=== PATIENT | female | born 1975 | race American Indian/Alaskan Native ===

== ENCOUNTER 2020-05-30 10:32 | Emergency (ER) | payer MEDICAID ==
[2020-05-30 10:37] VITALS: BP 112/83
[2020-05-30] MEDS ORDERED: FLUORESCEIN 1 MG STRIP OP ONE (10:40)
[2020-05-30] MEDS ORDERED: TETRACAINE 0.5% OPHTH SOLN 4ML OU ONE (10:40)
--- NOTE | 2020-05-30 10:51 | Emergency Department Report ---
ED Eye Problem HPI - General Chief complaint: Eye Problems Stated complaint: RT EYE PAIN Source: patient Mode of arrival: Ambulatory Limitations: No Limitations - History of Present Illness Initial comments: pt is a 44 yo female who presents to the ED with c/o right eye irritation that began just VIDEO TAPE [employer]SF[employer]. She states she had just woken up and was rubbing her eyes when she accidentally scratched her right eye with her fingernail. she states the eye was frequently watering. she states her eye feels slightly blurry secondary to the frequent watering. she denies any mucus or purulent drainage. she denies any contact lens use. she states that she has a foreign body sensation but did not get anything else into the eye. no pmhx. no allergies to meds. LNMP a week ago. - Related Data Previous Rx's Medication Instructions Recorded Last Taken Type Erythromycin [Erythromycin Ophth 1 applicatio OD QID 7 Days #1 tube 05/30/20 Unknown Rx Oint] Allergies Allergy/AdvReac Type Severity Reaction Status Date / Time coconut Allergy Angioedema Verified 05/30/20 10:34 ED Review of Systems ROS: Stated complaint: RT EYE PAIN Other details as noted in HPI Comment: All other systems reviewed and negative ED Past Medical Hx - Past Medical History Previous Medical History?: No - Surgical History Past Surgical History?: No - Medications Home Medications: Home Medications Medication Instructions Recorded Confirmed Last Taken Type Erythromycin [Erythromycin Ophth 1 applicatio OD QID 7 Days #1 tube 05/30/20 Unknown Rx Oint] ED Physical Exam - General Limitations: No Limitations General appearance: alert, in no apparent distress - Head Head exam: Present: atraumatic, normocephalic - Eye Eye exam: Present: PERRL, EOMI, other (fluoroscein stain with hernandez lamp examination: there is a 3 mm area of uptake overlying the region of the pupil, no foreign body, no signs of ulceration). Absent: periorbital swelling, periorbital tenderness - ENT ENT exam: Present: mucous membranes moist - Respiratory Respiratory exam: Absent: respiratory distress, accessory muscle use - Neurological Exam Neurological exam: Present: alert, oriented X3 - Psychiatric Psychiatric exam: Present: normal affect, normal mood - Skin Skin exam: Present: warm, dry, intact ED Course Vital Signs 05/30/20 10:34 Temperature 98.1 F Pulse Rate 72 Respiratory 16 Rate Blood Pressure 112/83 [Right] O2 Sat by Pulse 99 Oximetry ED Medical Decision Making - Medical Decision Making pt is a 44 yo female who presents to the ED with c/o right eye irritation that began just VIDEO T[employer]SF[employer]. She states she had just woken up and was rubbing her eyes when she accidentally scratched her right eye with her fingernail. she states the eye was frequently watering. she states her eye feels slightly blurry secondary to the frequent watering. she denies any mucus or purulent drainage. she denies any contact lens use. she states that she has a foreign body sensation but did not get anything else into the eye. no pmhx. no allergies to meds. LNMP a week ago. VSS. on exam: fluoroscein stain with hernandez lamp examination: there is a 3 mm area of uptake overlying the region of the right pupil, no foreign body, no signs of ulceration, EOMI, PERRLA. given prescription for erythromycin ointment. advised patient please use medication as prescribed. avoid rubbing the eye. wash your hands frequently and before and after you place medication. follow up with an family psychologist. return to the emergency room for any new or worsening symptoms. Critical care attestation.: If time is entered above; I have spent that time in minutes in the direct care of this critically ill patient, excluding procedure time. ED Disposition Clinical Impression: Corneal abrasion Qualifiers: Encounter type: initial encounter Laterality: right Qualified Code(s): S05.01XA - Injury of conjunctiva and corneal abrasion without foreign body, right eye, initial encounter Disposition: DC- TO HOME OR SELFCARE Is pt being admited?: No Does the pt Need Aspirin: No Condition: Stable Instructions: Corneal Abrasion Additional Instructions: please use medication as prescribed. avoid rubbing the eye. wash your hands frequently and before and after you place medication. follow up with an family psychologist. return to the emergency room for any new or worsening symptoms. Prescriptions: Erythromycin [Erythromycin Ophth Oint] 1 applicatio OD QID 7 Days #1 tube Referrals: [facility] [Provider Group] - 2-3 Days ANDREZ GARCIA DO [Staff Physician] - 2-3 Days Forms: Work/School Release Form(ED) Time of Disposition: 10:49 Print Language: UKRAINIAN
== END 2020-05-30 11:11 | disposition home or self-care (01) ==
LOC: ED 10:32
DX: S05.01XA Injury of conjunctiva and corneal abrasion without foreign body, right eye, initial encounter (principal); Z79.2 Long term (current) use of antibiotics; Z91.018 Allergy to other foods; X58.XXXA Exposure to other specified factors, initial encounter; Y93.89 Activity, other specified; Y92.89 Other specified places as the place of occurrence of the external cause; Y99.8 Other external cause status
CPT/HCPCS: 99282

== ENCOUNTER 2020-07-29 18:17 | Emergency (ER) | payer MEDICAID ==
[2020-07-29 19:40] VITALS: BP 164/94
--- NOTE | 2020-07-29 19:42 | Emergency Department Report ---
- General Stated complaint: RASH ALL OVER BODY/ITCHY/PAINFUL Time Seen by Provider: 07/29/20 19:37 Source: patient Mode of arrival: Ambulatory Limitations: No Limitations - History of Present Illness Initial comments: Patient is a 44-year-old female presents emergency room with complaints of a rash diffusely that began 3 days ago. She states that it feels very pruritic. She denies any new soaps, lotions, detergents, medications, foods, anything new she can think of. She denies any facial swelling, difficulty swallowing, difficulty breathing, sensation of throat closing. Counseling rashes. She has not followed up with primary care doctor. She denies any past medical history. 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 - Related Data Previous Rx's Medication Instructions Recorded Last Taken Type Erythromycin [Erythromycin Ophth 1 applicatio OD QID 7 Days #1 tube 05/30/20 Unknown Rx Oint] Famotidine [Pepcid] 40 mg PO QHS #10 tablet 07/29/20 Unknown Rx Prednisone [predniSONE 10 mg 10 mg PO .TAPER #1 tab.ds.pk 07/29/20 Unknown Rx (6-Day Pack, 21 Tabs)] Triamcinolone 0.1% [Kenalog 0.1% 1 applic TP TID #1 tube 07/29/20 Unknown Rx CREAM] hydrOXYzine HCL [Atarax] 25 mg PO Q6HR PRN #12 tablet 07/29/20 Unknown Rx Allergies Allergy/AdvReac Type Severity Reaction Status Date / Time coconut Allergy Angioedema Verified 05/30/20 10:34 Abscess Boil HPI - HPI Stated Complaint: RASH ALL OVER BODY/ITCHY/PAINFUL Time Seen by Provider: 07/29/20 19:37 Home Medications: Previous Rx's Medication Instructions Recorded Last Taken Type Erythromycin [Erythromycin Ophth 1 applicatio OD QID 7 Days #1 tube 05/30/20 Unknown Rx Oint] Famotidine [Pepcid] 40 mg PO QHS #10 tablet 07/29/20 Unknown Rx Prednisone [predniSONE 10 mg 10 mg PO .TAPER #1 tab.ds.pk 07/29/20 Unknown Rx (6-Day Pack, 21 Tabs)] Triamcinolone 0.1% [Kenalog 0.1% 1 applic TP TID #1 tube 07/29/20 Unknown Rx CREAM] hydrOXYzine HCL [Atarax] 25 mg PO Q6HR PRN #12 tablet 07/29/20 Unknown Rx Allergies/Adverse Reactions: Allergies Allergy/AdvReac Type Severity Reaction Status Date / Time coconut Allergy Angioedema Verified 05/30/20 10:34 ED Review of Systems ROS: Stated complaint: RASH ALL OVER BODY/ITCHY/PAINFUL Other details as noted in HPI Comment: All other systems reviewed and negative ED Past Medical Hx - Medications Home Medications: Home Medications Medication Instructions Recorded Confirmed Last Taken Type Erythromycin [Erythromycin Ophth 1 applicatio OD QID 7 Days #1 tube 05/30/20 Unknown Rx Oint] Famotidine [Pepcid] 40 mg PO QHS #10 tablet 07/29/20 Unknown Rx Prednisone [predniSONE 10 mg 10 mg PO .TAPER #1 tab.ds.pk 07/29/20 Unknown Rx (6-Day Pack, 21 Tabs)] Triamcinolone 0.1% [Kenalog 0.1% 1 applic TP TID #1 tube 07/29/20 Unknown Rx CREAM] hydrOXYzine HCL [Atarax] 25 mg PO Q6HR PRN #12 tablet 07/29/20 Unknown Rx ED Physical Exam - General Limitations: No Limitations General appearance: alert, in no apparent distress - Head Head exam: Present: atraumatic, normocephalic - Eye Eye exam: Present: normal appearance - ENT ENT exam: Present: mucous membranes moist - Respiratory Respiratory exam: Absent: respiratory distress, accessory muscle use - Neurological Exam Neurological exam: Present: alert, oriented X3 - Psychiatric Psychiatric exam: Present: normal affect, normal mood - Skin Skin exam: Present: warm, dry, other (small erythematous papules diffusely, no blistering, no skin denuding, no necrosis) ED Course Vital Signs 07/29/20 19:33 Temperature 98.2 F Pulse Rate 81 Respiratory 18 Rate Blood Pressure 164/94 O2 Sat by Pulse 95 Oximetry ED Medical Decision Making - Medical Decision Making Patient is a 44-year-old female presents emergency room with complaints of a rash diffusely that began 3 days ago. She states that it feels very pruritic. She denies any new soaps, lotions, detergents, medications, foods, anything new she can think of. She denies any facial swelling, difficulty swallowing, difficulty breathing, sensation of throat closing. Counseling rashes. She has not followed up with primary care doctor. She denies any past medical history. 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 Vitals are stable. On exam: small erythematous papules diffusely, no blistering, no skin denuding, no necrosis. Rash could be related to contact versus irritant dermatitis. Patient be referred to primary care doctor for reexamination. Patient given prescription for hydroxyzine, Pepcid, triamcinolone, prednisone taper. No signs of angioedema or anaphylaxis. No signs of acute emergent life-threatening rash. Advised patient Please use medication as prescribed. Please follow-up with a primary care doctor. Return to emergency room for new or worsening symptoms. Critical care attestation.: If time is entered above; I have spent that time in minutes in the direct care of this critically ill patient, excluding procedure time. ED Disposition Clinical Impression: Rash Disposition: DC- TO HOME OR SELFCARE Is pt being admited?: No Does the pt Need Aspirin: No Condition: Stable Instructions: Rash, Adult Additional Instructions: Please use medication as prescribed. Please follow-up with a primary care doctor. Return to emergency room for new or worsening symptoms. Prescriptions: Famotidine [Pepcid] 40 mg PO QHS #10 tablet hydrOXYzine HCL [Atarax] 25 mg PO Q6HR PRN #12 tablet PRN Reason: Itching Triamcinolone 0.1% [Kenalog 0.1% CREAM] 1 applic TP TID #1 tube Prednisone [predniSONE 10 mg (6-Day Pack, 21 Tabs)] 10 mg PO .TAPER #1 tab.ds.pk Referrals: [facility] [Provider Group] - 2-3 Days ARLEN LUCERO MD [Staff Physician] - 2-3 Days SEGUNDO MALONEY MD [Staff Physician] - 2-3 Days Time of Disposition: 19:41 Print Language: SINHAL[place]
== END 2020-07-29 20:12 | disposition home or self-care (01) ==
LOC: ED 18:17
DX: R21 Rash and other nonspecific skin eruption (principal); Z79.899 Other long term (current) drug therapy; Z91.018 Allergy to other foods
CPT/HCPCS: 99282